=== PATIENT | male | born 1970 | race African-American/Black ===

== ENCOUNTER 2019-03-31 13:57 | Emergency (ER) | payer OTHER ==
[2019-03-31 14:18] VITALS: BP_SYST 167
[2019-03-31 19:46] VITALS: BP_SYST 157
== END 2019-03-31 19:46 | disposition home or self-care (01) ==
LOC: SED 13:57
DX: F41.9 Anxiety disorder, unspecified (principal); I10 Essential (primary) hypertension
CPT/HCPCS: 71045; 93005; 99283